=== PATIENT | male | born 1960 | race Asian ===

== ENCOUNTER 2019-09-07 13:22 | Outpatient (CLI) | payer OTHER | END 2019-09-07 23:59 | disposition home or self-care (01) | LOC: CFH 13:22 | PROVIDERS: ATTEND Nurse Practitioner Family | DX: N63.13 Unspecified lump in the right breast, lower outer quadrant (principal) | CPT/HCPCS: 76642; 77066; G0279 ==

== ENCOUNTER 2019-09-17 10:08 | Outpatient (CLI) | payer OTHER ==
[2019-09-17] MEDS ORDERED: SODIUM BICARBONATE 4.2%, 5ML ONE (10:30)
[2019-09-17] MEDS ORDERED: LIDOCAINE 1%-EPI 1:100K, 20ML ONE (10:30)
[2019-09-17] MEDS ORDERED: LIDOCAINE 1%, 20ML ONE (10:30)
== END 2019-09-17 23:59 | disposition home or self-care (01) ==
LOC: CFH 10:08
PROVIDERS: ATTEND Nurse Practitioner Family
DX: N63.41 Unspecified lump in right breast, subareolar (principal); N61.0 Mastitis without abscess; N61.1 Abscess of the breast and nipple
CPT/HCPCS: 10160; 19083; 76942; 87015; 87070; 87075; 87102; 87116; 87205; 87206; 88305; 88312; J3490; 19000